=== PATIENT | male | born 1985 | race Caucasian/White ===

== ENCOUNTER 2017-09-19 18:59 | Emergency (ER) | payer SELFPAY ==
[~2017-09-19] VITALS: Ht 177.8 cm; Wt 113.6 kg
[~2017-09-19 18:59] MED LIST: NAPR-576 PO
[2017-09-19 19:00] VITALS: BP 184/93; PULSE 94; RESP 16; TEMP 98.2; O2SAT 98
--- NOTE | 2017-09-19 19:19 | PD ---
HPI Chief Complaint: Injury Time Seen by Provider: 19:16 Travel History International Travel<30 days: No Contact w/Intl Traveler<30days: No Traveled to known affect area: No History of Present Illness HPI 32-year-old male presents for evaluation of lower back pain. Prior to arrival the patient reports that he was jumping out of his truck and he landed on his left leg. Since then he has had pain in his lower back that radiates into the left hip and down the left medial leg. Pain is a sharp shooting pain which is constant, worse when walking. Denies any saddle anesthesia, incontinence, abdominal pain, chest pain, neck pain or mid back pain. He has no other complaints at this time. COUNT INCLUDES THE [facility] Social History Alcohol Use: No Tobacco Use: Yes Allergies-Medications (Allergen,Severity, Reaction): Coded Allergies: No Known Allergies (Unverified , 06/16/15) Reported Meds & Prescriptions Reported Meds & Active Scripts Active Naproxen 500 Mg Tab 500 Mg PO Q12HR PRN Review of Systems Except as stated in HPI: all other systems reviewed are Neg Physical Exam Narrative GENERAL: Well-developed well-nourished male in no acute distress ambulatory in the ED. SKIN: Warm and dry. HEAD: Atraumatic. Normocephalic. EYES: Pupils equal and round. No scleral icterus. No injection or drainage. ENT: No nasal bleeding or discharge. Mucous membranes pink and moist. NECK: Trachea midline. No JVD. CARDIOVASCULAR: Regular rate and rhythm. No murmur appreciated. RESPIRATORY: No accessory muscle use. Clear to auscultation. Breath sounds equal bilaterally. GASTROINTESTINAL: Abdomen soft, non-tender, nondistended. Hepatic and splenic margins not palpable. MUSCULOSKELETAL: No obvious deformities. There is tenderness to palpation along the lumbar spine and paravertebral musculature. There is 5 over 5 muscle strength in lower extremity is. There is pain with left hip flexion and extension against resistance. NEUROLOGICAL: Awake and alert. No obvious cranial nerve deficits. Motor grossly within normal limits. Normal speech. Data Data Last Documented VS Vital Signs Date Time Temp Pulse Resp B/P (MAP) Pulse Ox O2 Delivery O2 Flow Rate FiO2 09/19/17 19:00 98.2 94 16 184/93 (123) 98 Room Air Orders Orders Spine, Lumbar - Ltd (Ap & Lat) (09/19/17 ) Hip, Uni(Ap&Lat) W Ap Pelvis (09/19/17 ) Ketorolac Inj (Toradol Inj) (09/19/17 19:30) Orphenadrine Inj (Norflex Inj) (09/19/17 19:30) MDM Medical Decision Making Medical Screen Exam Complete: Yes Emergency Medical Condition: Yes Medical Record Reviewed: Yes Differential Diagnosis Herniated nucleus pulposis, piriformis syndrome, compression fracture, spinal stenosis, lumbar strain Narrative Course Patient will be given Toradol and Norflex. X-ray imaging of the lumbar spine, pelvis/left hip and ordered. X-ray imaging reveals no acute abnormalities. History and examination are consistent with lumbosacral radiculopathy. He will be discharged short course of NSAIDs, muscle relaxants, Lidoderm patches. Recommended follow-up with primary care physician in 2 weeks. Diagnosis Primary Impression: Lumbosacral radiculopathy Additional Instructions: Medication as needed. Take diclofenac with meals. Do not drive or drink alcohol when taking baclofen. Avoid strenuous activity and heavy lifting. Follow-up with primary care physician in 2 weeks. If symptoms persist outpatient MRI imaging of the lumbar spine may be warranted. Return for any emergent medical conditions. Med/Other Pt SpecificInfo: Prescription(s) given Scripts Lidocaine Patch 12 HR (Lidocaine Patch 12 HR) 5 % Patch 1 PATCH TOPICAL DAILY Y for PAIN, #1 BOX 0 Refills Remove patch after 12 hours Prov: Puma Francis MD 09/19/17 Baclofen (Baclofen) 10 Mg Tab 10 MG PO Q8HR for 10 Days, TAB 0 Refills Prov: Puma Francis MD 09/19/[address] (Diclofenac Sodium DR) 75 Mg Tabdr 75 MG PO BID for 10 Days, #20 TAB 0 Refills Prov: Puma Francis MD 09/19/17 Disposition: 01 DISCHARGE HOME Condition: Stable Julian Goodman Sep 19, 2017 19:19
[2017-09-19] MEDS ORDERED: ORPHENADRINE INJ 60 MG/2 ML AMP IM ONE (19:30)
[2017-09-19] MEDS ORDERED: KETOROLAC TROMETHAMINE 60 MG/2 ML (IM) VIAL IM ONE (19:30)
--- NOTE | 2017-09-19 19:41 | RADRPT ---
EXAM DATE/TIME: 09/19/2017 19:26 [facility] COMPARISON: No previous studies available for comparison. INDICATIONS : Patient jumped out of back of truck and landing on feet. Complains of left hip and pelvic pain. MEDICAL HISTORY : None. SURGICAL HISTORY : None. ENCOUNTER: Initial ACUITY: 1 day PAIN SCORE: 9/10 LOCATION: Left Hip FINDINGS: No definite fractures, or dislocations are identified. No definite lytic or sclerotic lesion is seen . The joint spaces are well maintained. CONCLUSION: Unremarkable study. Sana Cota MD on September 19, 2017 at 19:39 Board Certified Radiologist. This report was verified electronically.
--- NOTE | 2017-09-19 19:42 | RADRPT ---
EXAM DATE/TIME: 09/19/2017 19:32 [facility] COMPARISON: No previous studies available for comparison. INDICATIONS : Patient complains of lower back pain status post jumping out of back of truck and landing on feet. MEDICAL HISTORY : None. SURGICAL HISTORY : None. ENCOUNTER: Initial ACUITY: 1 day PAIN SCORE: 9/10 LOCATION: L-SPine FINDINGS: No appreciable compression deformities, spondylolisthesis, or spondylolysis is seen. The disc spaces are well-maintained for technique. There is evidence for prior cholecystectomy. CONCLUSION: Unremarkable study. Sana Cota MD on September 19, 2017 at 19:40 Board Certified Radiologist. This report was verified electronically.
[2017-09-19] MEDS ORDERED: LIDO1PAD52 TOPICAL (19:47)
[2017-09-19] MEDS ORDERED: DICL75TA PO (19:47)
[2017-09-19] MEDS ORDERED: BACL10TA PO (19:47)
== END 2017-09-19 20:04 | disposition home or self-care (01) ==
LOC: NEPK 18:59
DX: M54.17 Radiculopathy, lumbosacral region (principal); Z72.0 Tobacco use
CPT/HCPCS: 72100; 73502; 96372; 99284; J1885; J2360